=== PATIENT | female | born 1970 | race Caucasian/White ===

== ENCOUNTER 2019-02-13 04:09 | Emergency (ER) | payer MEDICAID ==
[~2019-02-13] VITALS: Ht 170.2 cm; Wt 80.7 kg
[2019-02-13 04:11] VITALS: BP 107/78
[2019-02-13] MEDS ORDERED: ACETAMINOPHEN 500 MG TABLET ONE (04:27)
[2019-02-13] MEDS ORDERED: IBUPROFEN 600 MG TABLET ONE (04:27)
[2019-02-13] MEDS ORDERED: IBUPROFEN 600 MG TABLET PO ONE (04:30)
[2019-02-13] MEDS ORDERED: ACETAMINOPHEN 500 MG TABLET PO ONE (04:30)
[2019-02-13 04:41] LABS: MICROSCOPIC INDICATED
[2019-02-13] MEDS ORDERED: CEFDINIR 300 MG CAPSULE ONE (04:55)
[2019-02-13] MEDS ORDERED: CEFDINIR 300 MG CAPSULE PO ONE (05:00)
== END 2019-02-13 05:02 | disposition home or self-care (01) ==
LOC: ED 04:45
DX: N30.01 Acute cystitis with hematuria (principal); E03.9 Hypothyroidism, unspecified
CPT/HCPCS: 81001; 99284